=== PATIENT | female | born 1965 | race Caucasian/White ===

== ENCOUNTER → 2023-05-12 14:07 | Outpatient (REF) | payer BC, SELFPAY | LOC: HWRAD 14:07 | PROVIDERS: ATTENDING PHYSICIAN Physician Assistant Medical | DX: M81.0 Age-related osteoporosis without current pathological fracture (principal) | CPT/HCPCS: 77080 ==

== ENCOUNTER → 2023-05-22 | Outpatient (REF) | payer BC, SELFPAY | LOC: DHSLP | PROVIDERS: ATTENDING PHYSICIAN Internal Medicine Interventional Cardiology; FAMILY PHYSICIAN Physician Assistant Medical | DX: G47.19 Other hypersomnia (principal); R06.83 Snoring; R40.0 Somnolence; R53.83 Other fatigue; E78.2 Mixed hyperlipidemia; I10 Essential (primary) hypertension | CPT/HCPCS: 95806 ==

== ENCOUNTER → 2024-04-29 11:08 | Outpatient (REF) | payer BC, SELFPAY | LOC: WDC 11:08 | PROVIDERS: ATTENDING PHYSICIAN Obstetrics & Gynecology Gynecology; FAMILY PHYSICIAN Physician Assistant Medical | DX: Z12.31 Encounter for screening mammogram for malignant neoplasm of breast (principal) | CPT/HCPCS: 77063; 77067 ==

== ENCOUNTER 2024-07-16 12:02 | Emergency (ER) | payer BC, SELFPAY ==
[2024-07-16 12:04] VITALS: BP 154/102
--- NOTE | 2024-07-16 13:30 | ED.MUSCINJ ---
HPI-Injury
General
Chief Complaint: Musculo-Skeletal Complaint
Source: patient
Exam Limitations: none
Time Seen by Provider: 07/16/24 12:46
History of Present Illness-Injury
Initial Injury comments:
59-year-old female presents complaining of left groin pain. She was walking her son's dog 8 days ago and fell on her left side and has continued groin pain particularly when bearing weight. She also notes bruising to the outer part of her hip. No
other complaints at this time.
Past History
Past History
ED Past Medical History: HTN, Hypercholesterolemia and Hypothyroidism
ED Past Surgical History: Orthopedic
Social History
Tobacco: Non-smoker
Alcohol: Former
Drug: None
Personal:
Living: with family
Phy Exam
Physical Exam
Physical Exam:
General: Well-appearing female no acute distress
Musculoskeletal exam: Left hip tender laterally. No deformity. Slightly increased pain with hip flexion and internal rotation.
Skin is intact
Injury Course
Orders/Labs/Results
Orders:
Orders
07/16/24 12:55
CR Hip - LT w/wo Pel 2-3 Vw* Urgent
Comment:
Reason For Exam: fall, left groin pain
Include a pelvis x-ray?: Yes
MDM/Problems Addressed
Differential Diagnosis Includes:
Left hip pain after a fall. Consider contusion versus fracture versus inguinal strain. X-rays pending
*Critical Care Note
Total Time (30-74mins, 75-104mins- exclusive of procedures): Not Applicable
Update Note
Update Note:
X-ray left hip personally visualized which demonstrates findings suspicious of a nondisplaced left pubic symphysis fracture. This happened 8 days ago. She has been ambulatory. No indication for admission. Recommend ibuprofen and Tylenol for
orthopedic follow-up.
ED Attending Note
-
Portions of this chart may have been created with voice recognition software.� Occasional wrong word or��sound alike� substitutions may have occurred due to the inherent limitations of voice recognition software.
Discharge Plan
Departure
Patient Disposition: Home (Routine Discharge)
Date of Disposition: 07/16/24
Time of Disposition: 15:12
Patient with high blood pressure during this ER visit?: No
Discharge Problem:
Fracture of left pubis
Prescriptions:
No Action
Theragen Tablet
1 tab PO DAILY
calcium carbonate [Calcium 500] 500 mg calcium (1,250 mg) Tablet
500 mg PO DAILY
ibuprofen 200 mg Tablet
200 mg PO Q6H PRN (Reason: headaches)
duloxetine 60 mg capsule,delayed release(DR/EC)
60 mg PO DAILY
ibandronate 150 mg tablet
150 mg PO MONTHLY
thyroid (pork) [[place] Thyroid] 30 mg tablet
45 mg PO DAILY
Referrals:
Ina Gibbons PA [Family Provider] -
Activity Restrictions/Additional Instructions:
Avoid heavy lifting. Use ibuprofen or Tylenol for pain. Follow-up with your orthopedic doctor for further evaluation
Interventions
Interventions:
*Risk Screen - Suicide Last Done: 07/16/24 12:04
*General Assessment Last Done: 07/16/24 12:04
*Neglect/Abuse Screening Last Done: 07/16/24 12:04
ED-Musculoskeletal Assessment Last Done: 07/16/24 12:36
Discharge Date and Time
Print Language: MOLDOVAN
== END 2024-07-16 15:20 | disposition home or self-care (01) ==
LOC: EMR 12:02
PROVIDERS: EMERGENCY PHYSICIAN Student in an Organized Health Care Education/Training Program; FAMILY PHYSICIAN Physician Assistant Medical
DX: S32.502A Unspecified fracture of left pubis, initial encounter for closed fracture (principal); W19.XXXA Unspecified fall, initial encounter
CPT/HCPCS: 99283; 73502

== ENCOUNTER → 2024-12-30 13:56 | Outpatient (REF) | payer BC, SELFPAY | LOC: HWRAD 13:56 | PROVIDERS: ATTENDING PHYSICIAN Physician Assistant Medical | DX: S09.90XA Unspecified injury of head, initial encounter (principal); R51.9 Headache, unspecified | CPT/HCPCS: 70450 ==

== ENCOUNTER → 2025-02-17 06:50 | Outpatient (REF) | payer BC, SELFPAY | LOC: RAD 06:50 | PROVIDERS: ATTENDING PHYSICIAN Physician Assistant Medical | DX: R63.4 Abnormal weight loss (principal) | CPT/HCPCS: 74177; Q9967 ==

== ENCOUNTER → 2025-03-25 08:04 | Outpatient (REF) | payer BC, SELFPAY | LOC: RAD 08:04 | PROVIDERS: ATTENDING PHYSICIAN Physician Assistant Medical | DX: R63.4 Abnormal weight loss (principal) | CPT/HCPCS: 71270; Q9967 ==